=== PATIENT | female | born 1980 | race African-American/Black ===

== ENCOUNTER 2018-08-06 12:18 | Inpatient (IN) | payer MEDICARE, OTHER ==
[~2018-08-06] VITALS: Ht 160 cm; Wt 95.3 kg
[2018-08-06 13:12] LABS: BASOPHILS % 3.2 % (0.0-2.0); EOSINOPHILS % 5.1 % (0.0-5.0); HEMATOCRIT. 42.2 % (36.0-48.0); HEMOGLOBIN. 13.9 g/dL (12.0-16.0); LYMPHOCYTES % 46.6 % (20.0-50.0); MEAN CORPUSCULAR HEMOGLOBIN 31.3 pg (28.0-32.0); MEAN CORPUSCULAR VOLUME 94.8 fL (81.0-99.0); MEAN PLATELET VOLUME 8.7 fl (7.4-10.4); MONOCYTES % 6.9 % (2.0-8.0); NEUTROPHILS % 38.2 % (40.0-76.0); PLATELET 274 x1000/uL (130-400); RED BLOOD CELL COUNT 4.45 mill/uL (4.2-5.4); RED CELL DISTRIBUTION WIDTH 13.3 % (11.6-14.6)
[2018-08-06 13:18] LABS: CHLORIDE 110 mEq/L (98-107)
[2018-08-06 13:22] LABS: ETHANOL BLOOD < 10 mg/dL
[2018-08-06] MEDS ORDERED: MORPHINE SULFATE 4 MG/ML CPJ (NOT FOR IM USE) IV ONE (14:15)
[2018-08-06] MEDS ORDERED: DIPHENHYDRAMINE 50MG/ML VIAL IV ONE (14:15)
[2018-08-06] MEDS ORDERED: ONDANSETRON HCL 4MG/2ML INJ IV ONE (14:15)
[2018-08-06 18:45] VITALS: BP 123/75
[2018-08-06 20:00] VITALS: BP 118/85
[2018-08-06 20:27] VITALS: BP 118/85
[2018-08-06] MEDS ORDERED: SUMATRIPTAN SUCCINATE 6MG/0.5ML VIAL SUBCUT NR (22:00)
[2018-08-06] MEDS: DIAZEPAM 5 MG TABLET PO SCH (22:09)
[2018-08-06] MEDS: HYDROMORPHONE HCL/PF 2MG/ML CPJ IV PRN (22:13)
[2018-08-06] MEDS ORDERED: DOCUSATE SODIUM 250MG CAPSULE PO NR (23:00)
[2018-08-06] MEDS: DIPHENHYDRAMINE 50MG/ML VIAL IM PRN (23:09)
[2018-08-06 23:18] LABS: BASOPHILS % 0.8 % (0.0-2.0); EOSINOPHILS % 5.4 % (0.0-5.0); HEMATOCRIT. 37.6 % (36.0-48.0); HEMOGLOBIN. 12.3 g/dL (12.0-16.0); LYMPHOCYTES % 57.8 % (20.0-50.0); MEAN CORPUSCULAR HEMOGLOBIN 30.9 pg (28.0-32.0); MEAN CORPUSCULAR VOLUME 94.3 fL (81.0-99.0); MEAN PLATELET VOLUME 9.3 fl (7.4-10.4); MONOCYTES % 8.9 % (2.0-8.0); NEUTROPHILS % 27.1 % (40.0-76.0); PLATELET 254 x1000/uL (130-400); RED BLOOD CELL COUNT 3.99 mill/uL (4.2-5.4); RED CELL DISTRIBUTION WIDTH 13.3 % (11.6-14.6)
[2018-08-06 23:21] LABS: CHLORIDE 108 mEq/L (98-107)
[2018-08-06] MEDS ORDERED: DIAZEPAM 5 MG/ML 2ML CPJ IV PRN (23:30)
[2018-08-07] VITALS: BP 118/82
[2018-08-07] MEDS: HYDROMORPHONE HCL/PF 2MG/ML CPJ IV PRN ×4 (04:17→22:45)
[2018-08-07] MEDS: DIPHENHYDRAMINE 50MG/ML VIAL IM PRN ×4 (06:01→22:45)
[2018-08-07 08:00] VITALS: BP 107/82
[2018-08-07] MEDS: DIAZEPAM 5 MG TABLET PO SCH ×2 (09:24→21:03)
[2018-08-07] MEDS: ENOXAPARIN 30MG/0.3ML SYR SUBCUT SCH ×2 (09:26→21:03)
[2018-08-07] MEDS: DOCUSATE SODIUM 100MG CAPSULE PO SCH ×2 (09:26→16:42)
[2018-08-07 12:00] VITALS: BP 95/57
[2018-08-07 16:00] VITALS: BP 121/67
[2018-08-07 18:00] VITALS: BP 111/71
[2018-08-07 20:00] VITALS: BP 100/69
[2018-08-07] MEDS ORDERED: POTASSIUM CHLORIDE 20MEQ TABLET SR PO NR (22:00)
[2018-08-08] VITALS: BP 97/55
[2018-08-08 04:00] VITALS: BP 98/65
[2018-08-08] MEDS: DIPHENHYDRAMINE 50MG/ML VIAL IM PRN (04:23)
[2018-08-08] MEDS: HYDROMORPHONE HCL/PF 2MG/ML CPJ IV PRN (04:23)
[2018-08-08] MEDS ORDERED: HYDROMORPHONE HCL/PF 2MG/ML CPJ IV PRN (06:15)
[2018-08-08] MEDS ORDERED: DIPHENHYDRAMINE 50MG/ML VIAL IV PRN (06:15)
[2018-08-08 06:17] LABS: *AMPHETAMINES SCREEN URINE NEGATIVE (NEGATIVE)
[2018-08-08 06:18] LABS: *BARBITURATES SCREEN URINE NEGATIVE (NEGATIVE); *COCAINE SCREEN URINE NEGATIVE (NEGATIVE)
[2018-08-08 06:19] LABS: METHADONE URINE SCREEN NEGATIVE (NEGATIVE); PHENCYCLIDINE URINE SCREEN NEGATIVE (NEGATIVE)
[2018-08-08 06:26] LABS: UCG SCREEN NEGATIVE
[2018-08-08 06:28] LABS: *BENZODIAZEPINES SCREEN URINE PRESUMTIVE POSITIVE (NEGATIVE); CANNABINOID URINE SCREEN PRESUMTIVE POSITIVE (NEGATIVE); OPIATES URINE SCREEN PRESUMTIVE POSITIVE (NEGATIVE)
[2018-08-08 08:00] VITALS: BP 116/90
[2018-08-08] MEDS ORDERED: SUMATRIPTAN SUCCINATE 25MG TABLET PO NR (08:00)
[2018-08-08] MEDS: DOCUSATE SODIUM 100MG CAPSULE PO SCH (10:13)
[2018-08-08] MEDS: DIAZEPAM 5 MG TABLET PO SCH (10:13)
[2018-08-08] MEDS: ENOXAPARIN 30MG/0.3ML SYR SUBCUT SCH (10:17)
[2018-08-08 11:31] VITALS: BP 116/90
== END 2018-08-08 11:55 | disposition home or self-care (01) | DRG 101 ==
LOC: ER 12:18 → CANBEDREQ 12:38 → 5WST 14:21 → EDBEDREQ 14:24 → EDRESERV 17:07 → ENRESERV 17:07 → 5WST 20:01
PROC: 05HY33Z Insertion of Infusion Device into Upper Vein, Percutaneous Approach (ICD-10-PCS; principal; 2018-08-06)
PROC: B54MZZA Ultrasonography of Right Upper Extremity Veins, Guidance (ICD-10-PCS; 2018-08-06)
DX: G40.509 Epileptic seizures related to external causes, not intractable, without status epilepticus (principal); E11.9 Type 2 diabetes mellitus without complications; G40.409 Other generalized epilepsy and epileptic syndromes, not intractable, without status epilepticus; E66.01 Morbid (severe) obesity due to excess calories; F32.9 Major depressive disorder, single episode, unspecified; F41.9 Anxiety disorder, unspecified; G89.4 Chronic pain syndrome; E87.8 Other disorders of electrolyte and fluid balance, not elsewhere classified; G43.909 Migraine, unspecified, not intractable, without status migrainosus; G44.029 Chronic cluster headache, not intractable; H55.00 Unspecified nystagmus; Z68.37 Body mass index [BMI] 37.0-37.9, adult; Z86.73 Personal history of transient ischemic attack (TIA), and cerebral infarction without residual deficits; Z98.51 Tubal ligation status; Z88.8 Allergy status to other drugs, medicaments and biological substances; Z88.6 Allergy status to analgesic agent
CPT/HCPCS: 36415; 36569; 71045; 76937; 80305; 80320; 81025; 83735; 99285; C1725; C1893; J1170; J1200; J1650; J2270; J2405; J3030; G0480

== ENCOUNTER 2019-04-17 01:34 | Inpatient (IN) | payer MEDICARE, OTHER ==
[~2019-04-17] VITALS: Ht 160 cm; Wt 108.9 kg
[2019-04-17] MEDS ORDERED: SODIUM CHLORIDE 0.9% 1,000 ML IV ONE (01:48)
[2019-04-17] MEDS ORDERED: DIAZEPAM 5 MG/ML 2ML CPJ IV ONE (02:00)
[2019-04-17 02:28] LABS: BASOPHILS % 1.7 % (0.0-2.0); EOSINOPHILS % 3.1 % (0.0-5.0); HEMATOCRIT. 48.6 % (36.0-48.0); HEMOGLOBIN. 16.9 g/dL (12.0-16.0); LYMPHOCYTES % 54.5 % (20.0-50.0); MEAN CORPUSCULAR HEMOGLOBIN 32.8 pg (28.0-32.0); MEAN CORPUSCULAR VOLUME 94.6 fL (81.0-99.0); MEAN PLATELET VOLUME 9.8 fl (7.4-10.4); NEUTROPHILS % 33.7 % (40.0-76.0); PLATELET 304 x1000/uL (130-400); RED BLOOD CELL COUNT 5.14 mill/uL (4.2-5.4); RED CELL DISTRIBUTION WIDTH 13.4 % (11.6-14.6)
[2019-04-17 02:31] LABS: CHLORIDE 110 mEq/L (98-107)
[2019-04-17 02:34] LABS: PROTHROMBIN TIME 10.1 sec (9.6-11.0)
[2019-04-17 02:36] LABS: ETHANOL BLOOD < 10 mg/dL
[2019-04-17] MEDS ORDERED: HYDROMORPHONE HCL/PF 2MG/ML CPJ IV ONE ×2 (04:00→06:15)
[2019-04-17] MEDS ORDERED: DIPHENHYDRAMINE 25MG CAPSULE PO ONE ×2 (04:00→06:15)
[2019-04-17] MEDS ORDERED: ONDANSETRON HCL 4MG/2ML INJ IV ONE ×2 (04:30→06:15)
[2019-04-17 05:20] LABS: CLARITY URINE CLEAR (CLEAR); COLOR URINE YELLOW (YELLOW); KETONES URINE NEGATIVE (NEGATIVE); LEUKOCYTE ESTERASE URINE NEGATIVE (NEGATIVE); NITRITE URINE NEGATIVE (NEGATIVE); OCCULT BLOOD URINE NEGATIVE (NEGATIVE); PROTEIN URINE NEGATIVE (NEGATIVE); UROBILINOGEN URINE 0.2 E.U./dL (0.2-1.0)
[2019-04-17 05:35] LABS: *AMPHETAMINES SCREEN URINE NEGATIVE (NEGATIVE); *BARBITURATES SCREEN URINE NEGATIVE (NEGATIVE); *COCAINE SCREEN URINE NEGATIVE (NEGATIVE)
[2019-04-17 05:36] LABS: PHENCYCLIDINE URINE SCREEN NEGATIVE (NEGATIVE)
[2019-04-17 05:37] LABS: METHADONE URINE SCREEN NEGATIVE (NEGATIVE)
[2019-04-17 05:56] LABS: *BENZODIAZEPINES SCREEN URINE PRESUMTIVE POSITIVE (NEGATIVE); CANNABINOID URINE SCREEN PRESUMTIVE POSITIVE (NEGATIVE); OPIATES URINE SCREEN PRESUMTIVE POSITIVE (NEGATIVE)
[2019-04-17] MEDS ORDERED: DIPH25CA83 PO (10:25)
[2019-04-17] MEDS ORDERED: SUMA100T PO (10:25)
[2019-04-17] MEDS ORDERED: DIPH50CA38 PO (10:25)
[2019-04-17] MEDS ORDERED: HYDR8TAB2 PO (10:25)
[2019-04-17] MEDS ORDERED: DIAZ10TA PO (10:25)
[2019-04-17] MEDS ORDERED: ONDA4TAB5 PO (10:25)
[2019-04-17] MEDS ORDERED: ZOLP10TA2 PO (10:25)
[2019-04-17 12:00] VITALS: BP 92/55
[2019-04-17 13:34] VITALS: BP 96/55
[2019-04-17] MEDS ORDERED: LORAZEPAM 2MG/ML CPJ IV NR (15:28)
[2019-04-17 16:00] VITALS: BP 125/87
[2019-04-17] MEDS ORDERED: MAGNESIUM/ALUMINUM HYDROXIDE/SIMETHICONE 30ML UDC PO PRN (17:45)
[2019-04-17] MEDS ORDERED: ACETAMINOPHEN 325MG TABLET PO PRN (17:45)
[2019-04-17] MEDS ORDERED: SUMATRIPTAN SUCCINATE 25MG TABLET PO PRN (18:00)
[2019-04-17] MEDS ORDERED: LORAZEPAM 2MG/ML CPJ IV PRN (18:15)
[2019-04-17] MEDS ORDERED: DIAZEPAM 5 MG TABLET PO PRN (18:15)
[2019-04-17] MEDS: ONDANSETRON HCL 4MG/2ML INJ IV PRN ×2 (18:19→22:32)
[2019-04-17] MEDS: HYDROMORPHONE HCL/PF 2MG/ML CPJ IV PRN ×2 (18:21→22:32)
[2019-04-17 20:00] VITALS: BP 102/65
[2019-04-17] MEDS: DIPHENHYDRAMINE 50MG/ML VIAL IV PRN (20:33)
[2019-04-17] MEDS ORDERED: ZOLPIDEM TARTRATE 5MG TABLET PO PRN (21:00)
[2019-04-17] MEDS: SODIUM CHLORIDE 0.9% INJ 3ML FLUSH IVF SCH (21:09)
[2019-04-18] VITALS: BP 114/76
[2019-04-18] MEDS ORDERED: SUMATRIPTAN SUCCINATE 6MG/0.5ML VIAL SUBCUT PRN
[2019-04-18] MEDS ORDERED: SUMATRIPTAN SUCCINATE 6MG/0.5ML VIAL SUBCUT ONE
[2019-04-18] MEDS: ONDANSETRON HCL 4MG/2ML INJ IV PRN ×5 (02:48→19:48)
[2019-04-18] MEDS: HYDROMORPHONE HCL/PF 2MG/ML CPJ IV PRN ×5 (02:48→19:49)
[2019-04-18 04:00] VITALS: BP 101/62
[2019-04-18] MEDS: SODIUM CHLORIDE 0.9% INJ 3ML FLUSH IVF SCH ×3 (06:30→22:00)
[2019-04-18 08:00] VITALS: BP 94/59
[2019-04-18] MEDS: DIPHENHYDRAMINE 50MG/ML VIAL IV PRN ×3 (08:36→22:07)
[2019-04-18 12:00] VITALS: BP 121/87
[2019-04-18 16:00] VITALS: BP 96/49
[2019-04-18 20:00] VITALS: BP 169/92
[2019-04-19] VITALS: BP 108/51
[2019-04-19] MEDS: ONDANSETRON HCL 4MG/2ML INJ IV PRN ×6 (00:25→21:51)
[2019-04-19] MEDS: HYDROMORPHONE HCL/PF 2MG/ML CPJ IV PRN ×6 (00:25→21:51)
[2019-04-19] MEDS: DIPHENHYDRAMINE 50MG/ML VIAL IV PRN ×5 (02:30→20:02)
[2019-04-19 04:00] VITALS: BP 127/90
[2019-04-19] MEDS: SODIUM CHLORIDE 0.9% INJ 3ML FLUSH IVF SCH ×3 (06:00→23:49)
[2019-04-19] MEDS: LACTULOSE 20G/30ML UDC PO PRN (06:43)
[2019-04-19 08:00] VITALS: BP 102/75
[2019-04-19 12:00] VITALS: BP 113/86
[2019-04-19 15:00] VITALS: BP 130/74
[2019-04-19 20:00] VITALS: BP 138/88
[2019-04-20] VITALS (7 sets, daily range): BP systolic 115–134; BP diastolic 64–92
[2019-04-20] MEDS: LACTULOSE 20G/30ML UDC PO PRN
[2019-04-20] MEDS: HYDROMORPHONE HCL/PF 2MG/ML CPJ IV PRN ×5 (01:29→18:09)
[2019-04-20] MEDS: ONDANSETRON HCL 4MG/2ML INJ IV PRN ×3 (01:30→18:20)
[2019-04-20] MEDS: DIPHENHYDRAMINE 50MG/ML VIAL IV PRN ×3 (03:59→15:39)
== END 2019-04-20 20:07 | disposition home health service (06) | DRG 101 ==
LOC: ER 01:34 → 6EST 06:15 → EDBEDREQ 06:19 → EDBEDREQSVC 06:19 → EDBEDREQTM 06:19 → ENRESERV 08:50
PROVIDERS: ADMIT Internal Medicine; ATTEND Internal Medicine
DX: R56.9 Unspecified convulsions (principal); G89.4 Chronic pain syndrome; N81.4 Uterovaginal prolapse, unspecified; D25.9 Leiomyoma of uterus, unspecified; F41.1 Generalized anxiety disorder; M54.30 Sciatica, unspecified side; Z90.710 Acquired absence of both cervix and uterus; Z98.51 Tubal ligation status; N80.9 Endometriosis, unspecified; G43.909 Migraine, unspecified, not intractable, without status migrainosus; Z76.5 Malingerer [conscious simulation]; Z98.891 History of uterine scar from previous surgery; Z88.6 Allergy status to analgesic agent; Z88.8 Allergy status to other drugs, medicaments and biological substances
CPT/HCPCS: 36415; 71045; 76830; 76856; 80053; 80305; 80320; 81003; 82140; 84484; 85025; 93005; 97161; C1893; J1170; J1200; J2060; J2405; J3030; J7030; Q0163; G0480